=== PATIENT | female | born 1960 | race Caucasian/White ===

== ENCOUNTER 2019-07-07 09:55 | Day surgery (SDC) | payer OTHER, SELFPAY ==
--- NOTE | 2019-07-07 | PATH_ITS ---
[facility] Accession Number: [id number] . 01 Material submitted: . colon - SIGMOID POLYP . 02 Diagnosis: Sigmoid Colon, Polyp: Polypoid granulation tissue/inflammatory polyp. Negative for dysplasia or malignancy. [facility] 07/12/2019 0941 Local . 02 Electronically signed: . Orlando Sanabria MD, PhD, Pathologist NPI- [id number] . 01 Gross description: . SIGMOID POLYP: Received in formalin are multiple fragment(s) of reyes, soft tissue measuring 3.0 x 2.5 x 0.2 cm in aggregate submitted entirely in 1 cassette(s) /QBJ 07/08/2019 0716 Local . 02 Pathologist provided ICD-10: K51.40 . 02 CPT . 026919 Performed at: 01 [facility] [address] [id number] MD Nash Slater MD Phone: [phone] [facility]formed at: 02 [facility] [address] [place], [place] [id number] MD Libby Rivera MD Phone: [phone]
[2019-07-07 10:33] VITALS: BP 125/68; PULSE 75; RESP 15; TEMP 36.4; O2SAT 95; BMI 28.1
[2019-07-07] MEDS: SODIUM CHLORIDE 0.9% 1,000 ML 70 ML IV (10:42)
--- NOTE | 2019-07-07 11:35 | P.HP_ITS ---
History of Present Illness History of Present Illness Date Patient Seen: 07/07/19 Time Patient Seen: 11:35 Chief complaint: [id number] Narrative: Patient describes personal history of colon cancer diagnosed in 2004. She did undergo what sounds like a left hemicolectomy. She has had follow-up colonoscopy since then. Most recently 5-6 years ago in [place]. Patient History Medical History (Updated 07/07/19 @ 11:35 by Mikayla Zaidi DO) Colon cancer (Acute) Family & Social History Social History: household members spouse Meds Home Medications and Allergies Home Medications Medication Instructions Recorded Confirmed Type acetaminophen [Tylenol Arthritis 650 mg PO Q12H 07/07/19 07/07/19 History Pain] escitalopram oxalate [Lexapro] 10 mg PO DAILY 07/07/19 07/07/19 History Allergies Allergy/AdvReac Type Severity Reaction Status Date / Time No Known Drug Allergies Allergy Verified 07/07/19 10:31 Review of Systems Review of Systems ROS Unobtainable: All systems reviewed & are unremarkable except as noted in HPI and below Exam Vital Signs (past 8 hours): - 07/07/19 10:33 Temperature 97.5 F L Pulse Rate 75 Respiratory Rate 15 Blood Pressure 125/68 Pulse Oximetry 95 Oxygen Delivery Method Room Air Const General: cooperative, healthy appearing, comfortable, well developed, well groomed and No acute distress Nutritional Appearance: average body habitus Orientation: oriented x3 Resp Effort & Inspection: normal respiratory effort and able to speak in complete sentences Auscultation: clear to auscultation bilaterally Cardio Rate: regular rate Rhythm: regular rhythm Heart Sounds: S1 normal and S2 normal GI Palpation: soft and No tender Auscultation: normal bowel sounds Extrem Right lower extremity: no edema Left lower extremity: no edema Assessment & Plan Assessment & Plan narrative: 1. Personal history of colon cancer 2004 s/p resection Colonoscopy today, further recommendations to follow
[2019-07-07] MEDS: ONDANSETRON 4 MG/2 ML INJ IV (11:41)
[2019-07-07] MEDS: MIDAZOLAM 5 MG/5 ML VIAL IV (11:42)
[2019-07-07] MEDS: fentaNYL 250 MCG/5 ML INJ IV (11:43)
--- NOTE | 2019-07-07 11:52 | SUR.OPER ---
GLASSES IN LABELED BAG TO PACU WITH PATIENT
[2019-07-07 12:21] VITALS: BP 109/70; PULSE 84; RESP 20; TEMP 36.5; O2SAT 98
[2019-07-07 12:26] VITALS: BP 112/73; PULSE 79; RESP 12; O2SAT 98
[2019-07-07 12:31] VITALS: BP 111/75; PULSE 73; RESP 14; TEMP 36.4; O2SAT 97
--- NOTE | 2019-07-07 12:31 | PM.OP.ENDO ---
Operative Date/Time/Diagnoses Date of procedure: 07/07/19 Time of procedure: 11:43 Procedure Notes Procedure in detail: Surgeon: Mikayla Zaidi DO Procedure: Colonoscopy with polypectomy Preoperative diagnosis: 1. High risk surveillance, personal history colon cancer 2005 status post resection Postoperative diagnosis: 1. End to end colonic anastomosis in the sigmoid colon 2. Sigmoid colon diverticulosis 3. Sigmoid colon polyp 4. Grade 1 mild internal hemorrhoids Medications: Conscious sedation using 5 mg IV of Midazolam and 125 mcg IV of Fentanyl Preanesthesia Assessment An H and P was performed/updated and the Px?s ASA class is 2. The procedure was discussed in detail with the patient. The potential risks and complications including infection, bleeding, missed lesions, perforation, need for surgery in case of perforation, prolonged hospital stay, and were explained. A brief question and answer period was allotted and once all questions were answered, informed consent was obtained. The patient was brought back to the procedure room and placed on standard monitoring. The patient?s vital signs were monitored continuously throughout the entire procedure. Prior to starting, a timeout was performed to confirm the patient?s identity, allergies, medications, and procedure. Procedure in detail The patient was placed in left lateral decubitus position and once adequate sedation was obtained a MANUEL was performed. The digital rectal examination did not reveal any palpable lesions. The tip of the colonoscope was placed in the anal canal and advanced without difficulty all the way to the cecum which was identified by the appendiceal orifice and the ileocecal valve. Careful examination of all connelly of the colon was performed with irrigation of any residual stool. -end-to-end colonic anastomosis noted in the colon with tight angulation, adult colonoscope was unable to pass this tight angulation, the pediatric endoscope was substituted and we were able to pass this angulation. -sigmoid diverticulosis -5 cm colon polyp in the sigmoid colon removed with cold snare -grade 1 internal hemorrhoids noted on retroflexion -otherwise unremarkable colonoscopy The patient tolerated the procedure well and will be brought back to the recovery area to be discharged once criteria are met. The prep was judged to be good/excellent and adequate to identify polyps less than 5 mm. The withdrawal time was 7min. The total physician intraservice time was 31min. Complications There were no complications and estimated blood loss was minimal. Recommendations: Resume previous diet Continue outPx medications Follow up pathology results Repeat colonoscopy will be determined based on pathology results An emergency contact number was given to the patient for any complications related to the procedure
[2019-07-07 12:45] VITALS: BP 112/76; PULSE 79; RESP 20; TEMP 36.6; O2SAT 100
== END 2019-07-07 13:00 | disposition home or self-care (01) ==
PROVIDERS: Visit Provider Student in an Organized Health Care Education/Training Program
PROC: 0DJD8ZZ Inspection of Lower Intestinal Tract, Via Natural or Artificial Opening Endoscopic (ICD-10-PCS; CPT 45378; principal; 2019-07-07 11:00)
DX: Z12.11 Encounter for screening for malignant neoplasm of colon (principal); Z85.038 Personal history of other malignant neoplasm of large intestine; K64.0 First degree hemorrhoids; K57.30 Diverticulosis of large intestine without perforation or abscess without bleeding; K51.40 Inflammatory polyps of colon without complications
CPT/HCPCS: 45385; J2250; J2405; J3010

== ENCOUNTER 2023-10-07 09:20 | Day surgery (SDC) | payer OTHER, SELFPAY ==
[2023-10-07 09:38] VITALS: BP 123/79; PULSE 81; RESP 16; TEMP 36.4; O2SAT 99
[2023-10-07] MEDS: LACTATED RINGERS 1,000 ML 42 ML IV (09:44)
--- NOTE | 2023-10-07 10:14 | P.HP_ITS ---
History of Present Illness History of Present Illness Date Patient Seen: 10/07/23 Time Patient Seen: 10:14 Chief complaint: SDC Narrative: 63-year-old woman personal history of colon cancer status post resection 2005 here for screening colonoscopy. Last colonoscopy 2019 with a benign polyp. No abdominal concerns today. 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 Genetic predisposition to cancer Well woman exam with routine gynecological exam Mastodynia of right breast Cervical cancer screening Colon cancer Social History marital status: household members: spouse housing: house education level: college occupational status: employed Previous occupational history: subsitute teacher, special ed here on [employer] Smoking Status: Former smoker alcohol intake: current Meds Home Medications and Allergies Home Medications Medication Instructions Recorded Confirmed Type escitalopram oxalate 10 mg tablet 10 mg PO DAILY 07/07/19 10/07/23 History (Lexapro) sodium,potassium,mag sulfates 17.5 See Rx Instructions PO .COMPLEX 07/18/23 Rx gram-3.13 gram-1.6 gram oral soln #354 mL (Suprep Bowel Prep Kit) Allergies Allergy/AdvReac Type Severity Reaction Status Date / Time No Known Drug Allergies Allergy Verified 10/07/23 09:35 Exam Vital Signs (past 8 hours): - 10/07/23 09:38 Temperature 97.6 F Pulse Rate 81 Respiratory Rate 16 Blood Pressure 123/79 Pulse Oximetry 99 Oxygen Delivery Method Room Air Oxygen Delivery Method Room Air Narrative Exam Narrative: General adult woman alert oriented no acute distress Chest nonlabored respiration Extremities warm well perfused Assessment & Plan Assessment & Plan narrative: The patient requires colorectal screening and colonoscopy is recommended. Technical details were discussed. Risks, benefits, alternatives explained. Risks including but not limited to myocardial infarction, aspiration, bleeding, pain, missed lesion, incomplete examination, need for further radiographic studies, colonic perforation, and need for major abdominal surgery were discussed. All questions were answered to their satisfaction, and they are in agreement with this plan.
--- NOTE | 2023-10-07 10:47 | P.OP.COLON_ITS ---
Operative Date/Time/Diagnoses Date of procedure: 10/07/23 Time of procedure: 10:47 Pre-op diagnosis: History of colon cancer Procedure & Clinicians Study performed: Colonoscopy Same procedure as scheduled: Yes Indications: History of colon cancer Colorectal screening Surgeon: Tomi Richter Procedure Notes Procedure in detail: The history and physical was performed/updated and the patient is ASA class is 2. The procedure was discussed in detail with the patient. Potential risks complications including infection, bleeding, missed diagnosis, perforation, need for surgery, and were explained. Their questions were answered and informed consent was obtained. Patient was brought to the procedure room and placed standard monitoring equipment. The patient's vital signs were monitored continuously throughout the entire procedure. Prior to starting time-out was performed. The patient was placed in the left lateral recumbent position. Procedural sedation was administered by anesthesia. Examination began with a thorough inspection of the perianal area there was no evidence of fissures, fistulae, external hemorrhoids or cutaneous malignancy. The colonoscopy scope was then placed into the anal canal and was advanced to the cecum, which was identified by the ileocecal valve, the appendiceal orifice and the confluence of the taenia. The scope was then slowly withdrawn examining colon thoroughly in all directions, irrigating it of any residual stool. The scope was retroflexed within the rectum The patient tolerated the procedure well. They will be discharged once criteria are met. The prep was of good/excellent quality. The withdrawl time was not applicable given their history of colectomy FINDINGS * Tortuous colorectal anastomosis * No polyps or masses Impression: Normal colonoscopy status post colectomy Post-procedure Recommendations: Colonoscopy in 5 years Disposition: same day surgery
[2023-10-07 10:50] VITALS: PULSE 64; RESP 18; TEMP 36.9; O2SAT 99
[2023-10-07 10:55] VITALS: BP 108/65; PULSE 70; RESP 20; TEMP 36.9; O2SAT 98
[2023-10-07 11:02] VITALS: BP 103/62; PULSE 66; RESP 16; TEMP 36.9; O2SAT 98
[2023-10-07 11:06] VITALS: BP 104/66; PULSE 71; RESP 22; TEMP 36.9; O2SAT 98
== END 2023-10-07 11:20 | disposition home or self-care (01) ==
PROVIDERS: PCP Family Medicine; Referring Provider Surgery; Visit Provider Surgery
PROC: 0DJD8ZZ Inspection of Lower Intestinal Tract, Via Natural or Artificial Opening Endoscopic (ICD-10-PCS; CPT 45378; principal; 2023-10-07 10:15)
DX: Z12.11 Encounter for screening for malignant neoplasm of colon (principal); Z85.038 Personal history of other malignant neoplasm of large intestine
CPT/HCPCS: 45378; J2704